=== PATIENT | male | born 2000 | race Caucasian/White ===

== ENCOUNTER 2024-01-31 01:31 | Observation (INO) ==
[2024-01-31 02:09] LABS: ABS Eosinophils 0.1 10^3/uL (0.0-0.5); ABS Lymphocytes 2.9 10^3/uL (1.0-4.8); ABS Monocytes 0.8 10^3/uL (0.0-1.1); ABS Neutrophils 5.6 10^3/uL (1.5-7.6); Eosinophil % 1.4 %; Hemoglobin 13.4 g/dL (13.2-16.3); Mean Corpuscular Hemoglobin 30.6 pg (27-33); Mean Corpuscular Hgb Conc 34.4 g/dL (31-36); Mean Corpuscular Volume 89.1 fL (80-97); Mean Platelet Volume 7.9 fL (7.5-11.2); Platelet Count 304 10^3/uL (150-450); Red Blood Count 4.38 10^6/uL (4.06-5.63); Red Cell Distribution Width 13.1 % (12-17); White Blood Count 9.5 10^3/uL (3.6-10.2)
[2024-01-31 02:31] LABS: Albumin 3.7 g/dL (3.2-5.2); Albumin/Globulin Ratio 1.8 (1-3); Calcium 7.9 mg/dL (8.6-10.3); Creatinine, Serum 0.72 mg/dL (0.67-1.17); Globulin 2.1 g/dL (2-4); Potassium 3.7 mmol/L (3.5-5.0); Total Bilirubin 0.3 mg/dL (0.2-1.0); Total Protein 5.8 g/dL (6.4-8.9)
[2024-01-31] MEDS ORDERED: Polyethylene Glycol 3350 17 GM PACKET PO PRN (02:59)
[2024-01-31 08:46] VITALS: BP 134/74
[2024-01-31 09:23] LABS: Urine Benzodiazepine Screen None Detected (None Detect); Urine Cannabinoids Screen Presumptive Positive (None Detect); Urine Opiates Screen None Detected (None Detect)
== END 2024-01-31 13:45 | disposition home or self-care (01) ==
LOC: EDHOLD 01:31 → ED 01:31 → SUATTDRO 02:59 → ICU 04:38 → MED 09:34
PROVIDERS: ADMIT Internal Medicine; ATTEND Hospitalist